=== PATIENT | male | born 1955 | race Caucasian/White ===

== ENCOUNTER 2020-08-07 06:24 | Inpatient (IN) | payer MEDICARE, OTHER ==
[~2020-08-07] VITALS: Ht 180.3 cm; Wt 113.3 kg
--- NOTE | 2020-08-07 06:44 | NUR ---
patient resting in bed with SOB after coughing. SOB with conversation. full sentences. A&Ox4. safety maintained. will continue to monitor.
[2020-08-07] MEDS ORDERED: SPIR25TA5 PO (06:55)
[2020-08-07] MEDS ORDERED: METO-282 PO (06:55)
[2020-08-07] MEDS ORDERED: AMLO-211 PO (06:55)
--- NOTE | 2020-08-07 06:58 | NUR ---
report given to dave CAM
[2020-08-07 07:44] LABS: BASOPHILS % (AUTO) 0 % (0-1); EOSINOPHILS % (AUTO) 0 % (1-7); LYMPHOCYTES % (AUTO) 9 % (22-44); MEAN CORPUSCULAR HEMOGLOBIN 28.5 pg (27.5-34.5); MEAN CORPUSCULAR HGB CONC 33.9 g/dL (33.2-36.2); MEAN PLATELET VOLUME 8.5 fL (7.4-10.4); MONOCYTES % (AUTO) 8 % (2-9); NEUTROPHILS % (AUTO) 83 % (42-75); PLATELET COUNT 152 x10^3/uL (130-400); RED BLOOD COUNT 6.28 x10^6/uL (4.38-5.82); RED CELL DISTRIBUTION WIDTH 13.6 % (9.4-14.8)
[2020-08-07 07:54] LABS: ALANINE AMINOTRANSFERASE 50 U/L (12-78); ALBUMIN 2.9 g/dL (3.4-5.0); ANION GAP 8 mmol/L (5-15); CALCIUM 8.9 mg/dL (8.5-10.1); CHLORIDE 105 mmol/L (98-107); CREATININE 1.12 mg/dL (0.7-1.3)
[2020-08-07 07:59] LABS: MD NO
[2020-08-07 08:01] LABS: ALKALINE PHOSPHATASE 25 U/L (45-117); BILIRUBIN,TOTAL 0.6 mg/dL (0.2-1.0); TOTAL PROTEIN 6.8 g/dL (6.4-8.2)
--- NOTE | 2020-08-07 08:11 | NUR ---
PT AWAITING TEST RESULTS. PROVIDED DRINKS, BLANKET AND PILLOW
[2020-08-07 08:26] LABS: D-DIMER (DIC) 0.27 ug/mlFEU (0.00-0.52); PROTIME 10.9 Seconds (9.6-11.5)
--- NOTE | 2020-08-07 09:05 | NUR ---
CONTINUES TO AWAIT RE-EVAL. RESTING WITH EYES CLOSED
[2020-08-07] MEDS ORDERED: CEFTRIAXONE PMX 1GM/50ML 50 ML IV ONE ×2 (09:30→12:00)
[2020-08-07] MEDS ORDERED: AZITHROMYCIN 500 MG in SODIUM CHLORIDE 0.9% 250 ML IV ONE (09:30)
[2020-08-07] MEDS ORDERED: CEFTRIAXONE PMX 1GM/50ML 50 ML ONE ×2 (09:47→11:46)
--- NOTE | 2020-08-07 10:13 | NUR ---
aware of intention to admit. iv established and antibiotics infusing
[2020-08-07] MEDS ORDERED: POLYETHYLENE GLYCOL 17 GM PACKET PO PRN (11:30)
[2020-08-07] MEDS ORDERED: hydrALAzine 20 MG/ML, 1ML IVPush PRN (11:30)
[2020-08-07] MEDS ORDERED: MELATONIN 5 MG TABLET PO PRN (11:30)
[2020-08-07] MEDS ORDERED: DOCUSATE 100 MG CAPSULE PO PRN (11:30)
[2020-08-07] MEDS ORDERED: ONDANSETRON 2MG/ML, 2ML IVPush PRN (11:30)
[2020-08-07] MEDS ORDERED: DEXAMETHASONE 4 MG/ML, 1ML ONE (11:44)
[2020-08-07] MEDS ORDERED: DEXAMETHASONE 4 MG/ML, 1ML IVPush ONE (12:00)
[2020-08-07 12:25] LABS: INTERNATIONAL NORMALIZED RATIO 1.03 (0.93-1.1); PROTHROMBIN TIME 10.9 Seconds (9.6-11.5)
[2020-08-07] MEDS ORDERED: ENOXAPARIN 40 MG/0.4 ML ONE (13:26)
[2020-08-07] MEDS: ENOXAPARIN 40 MG/0.4 ML SQ SCH (13:36)
--- NOTE | 2020-08-07 13:58 | NUR ---
BREAK RN: PT UPRIGHT ON GURNEY AWAKE & COMFORTABLE, RESPONDS APPROP TO STAFF, NAD, NO NEEDS AT THIS TIME, CALL LIGHT WITHIN REACH.
--- NOTE | 2020-08-07 15:27 | NUR ---
ONTO HOSPITAL BED. CONTINUES TO AWAIT ROOM ASSIGNMENT. NO SOB NOTED, OCCASIONAL COUGH.
[2020-08-07] MEDS ORDERED: GUAIFENESIN/DM 200-20MG, 10ML UDC ONE (16:56)
[2020-08-07] MEDS: GUAIFENESIN/DM 200-20MG, 10ML UDC PO PRN (17:01)
[2020-08-07] MEDS: AMLODIPINE 10 MG TAB PO SCH (17:33)
[2020-08-07] MEDS ORDERED: ASCORBIC ACID 500 MG TABLET ONE (17:38)
[2020-08-07] MEDS: ASCORBIC ACID 500 MG TABLET PO SCH (17:45)
[2020-08-07 17:59] LABS: MICROSCOPIC NOT IND
--- NOTE | 2020-08-07 19:04 | NUR ---
Report received from DORINA Duran. This RN to assume care. Patient resting in hospital bed. Slight SHARP at this time. Will provide drinks and assess mar for PRN pain meds.
[2020-08-07] MEDS ORDERED: ACETAMINOPHEN 325 MG TABLET ONE (19:43)
[2020-08-07] MEDS: ACETAMINOPHEN 325 MG TABLET PO PRN (20:00)
[2020-08-07] MEDS: SODIUM CHLORIDE FLUSH 10ML SYR IVF SCH (21:00)
[2020-08-07] MEDS ORDERED: METOPROLOL TARTRATE 25 MG TAB ONE (21:39)
[2020-08-07] MEDS ORDERED: ATORVASTATIN 40 MG TABLET ONE (21:40)
[2020-08-07] MEDS: METHIMAZOLE 5 MG TAB PO SCH (22:00)
[2020-08-07] MEDS: METOPROLOL SUCCINATE 25 MG TAB.ER.24H PO SCH (22:00)
[2020-08-07] MEDS: ATORVASTATIN 40 MG TABLET PO SCH (22:00)
--- NOTE | 2020-08-07 22:00 | NUR ---
Medicated patient per mar. Patient has no complaints/needs at this time.
--- NOTE | 2020-08-07 23:55 | NUR ---
Patient sleeping in hospital bed. Respirations even and unlabored. No complaints needs at this time.
--- NOTE | 2020-08-08 00:46 | NUR ---
TASK RN: PT RESTING ON HOSPITAL BED NADN, RESP EVEN AND UNLABORED.
--- NOTE | 2020-08-08 01:50 | NUR ---
Patient sleeping in hospital bed. Respirations even and unlabored.
[2020-08-08] MEDS ORDERED: ACETAMINOPHEN 325 MG TABLET ONE (03:35)
--- NOTE | 2020-08-08 04:00 | NUR ---
Patient sitting in hospital bed, awake and on phone. Respirations even and unlabored. Patient has a slight SHARP again. Tylenol provided per sep. Drinks provided. Urinal emptied. No other needs at this time.
[2020-08-08 05:52] LABS: BASOPHILS % (AUTO) 0 % (0-1); EOSINOPHILS % (AUTO) 0 % (1-7); LYMPHOCYTES % (AUTO) 11 % (22-44); MEAN CORPUSCULAR HEMOGLOBIN 28.4 pg (27.5-34.5); MEAN CORPUSCULAR HGB CONC 33.7 g/dL (33.2-36.2); MEAN PLATELET VOLUME 8.9 fL (7.4-10.4); MONOCYTES % (AUTO) 7 % (2-9); NEUTROPHILS % (AUTO) 82 % (42-75); PLATELET COUNT 166 x10^3/uL (130-400); RED BLOOD COUNT 5.94 x10^6/uL (4.38-5.82); RED CELL DISTRIBUTION WIDTH 13.6 % (9.4-14.8)
[2020-08-08 06:00] LABS: ALANINE AMINOTRANSFERASE 64 U/L (12-78); ALBUMIN 2.7 g/dL (3.4-5.0); ANION GAP 7 mmol/L (5-15); CALCIUM 8.9 mg/dL (8.5-10.1); CHLORIDE 108 mmol/L (98-107); CREATININE 0.97 mg/dL (0.7-1.3)
--- NOTE | 2020-08-08 06:00 | NUR ---
Patient resting in hospital bed, awake. Respirations even and unlabored.
[2020-08-08 06:02] LABS: ALKALINE PHOSPHATASE 22 U/L (45-117); BILIRUBIN,TOTAL 0.5 mg/dL (0.2-1.0); TOTAL PROTEIN 6.3 g/dL (6.4-8.2)
[2020-08-08 06:10] LABS: MD NO
--- NOTE | 2020-08-08 06:46 | NUR ---
Meal tray ordered.
--- NOTE | 2020-08-08 08:40 | NUR ---
pt has been up to bedside commode for BM. pt reports feeling very fatigued after getting up meal tray has been delivered
--- NOTE | 2020-08-08 09:16 | NUR ---
pt has consumed 100% of meal ECHO at bedside
--- NOTE | 2020-08-08 10:19 | NUR ---
hospitalist at bedside for eval
--- NOTE | 2020-08-08 10:39 | NUR ---
bed assignment has been received. attempting to call report
--- NOTE | 2020-08-08 10:44 | NUR ---
report called to Janiya CAM
[2020-08-08] MEDS ORDERED: PANTOPRAZOLE 40MG TABLET ONE (10:46)
[2020-08-08] MEDS ORDERED: ASCORBIC ACID 500 MG TABLET ONE (10:46)
[2020-08-08] MEDS ORDERED: AMLODIPINE 5 MG TABLET ONE (10:47)
[2020-08-08] MEDS ORDERED: LISINOPRIL 5 MG TABLET ONE (10:48)
[2020-08-08] MEDS ORDERED: CHOLECALCIFEROL 5,000u TAB ONE (10:49)
[2020-08-08] MEDS ORDERED: ZINC SULFATE 220 MG CAPSULE ONE (10:49)
[2020-08-08] MEDS: ZINC SULFATE 220 MG CAPSULE PO SCH ×2 (10:55→12:27)
[2020-08-08] MEDS: AMLODIPINE 10 MG TAB PO SCH ×2 (10:55→12:27)
[2020-08-08] MEDS: ASCORBIC ACID 500 MG TABLET PO SCH ×2 (10:56→17:23)
[2020-08-08] MEDS: CHOLECALCIFEROL 5,000u TAB PO SCH ×2 (10:57→12:27)
[2020-08-08] MEDS: LISINOPRIL 5 MG TABLET PO SCH ×2 (10:57→12:29)
[2020-08-08] MEDS: PANTOPRAZOLE 40MG TABLET PO SCH (10:57)
[2020-08-08 11:22] VITALS: BP 143/83
[2020-08-08] MEDS: AZITHROMYCIN 500 MG in SODIUM CHLORIDE 0.9% 250 ML IV SCH (12:26)
[2020-08-08] MEDS: METHIMAZOLE 5 MG TAB PO SCH (12:26)
[2020-08-08] MEDS: FOLIC ACID 1 MG TABLET PO SCH (12:27)
[2020-08-08] MEDS: THIAMINE 100MG TABLET PO SCH (12:27)
[2020-08-08] MEDS: METOPROLOL SUCCINATE 25 MG TAB.ER.24H PO SCH ×2 (12:29→21:06)
[2020-08-08] MEDS: ENOXAPARIN 40 MG/0.4 ML SQ SCH (12:29)
[2020-08-08] MEDS: SODIUM CHLORIDE FLUSH 10ML SYR IVF SCH ×2 (12:30→21:08)
[2020-08-08] MEDS: GUAIFENESIN/DM 200-20MG, 10ML UDC PO PRN ×2 (12:52→21:06)
[2020-08-08] MEDS: CEFTRIAXONE PMX 2GM/50ML 50 ML IVPB SCH (14:38)
[2020-08-08] MEDS: DEXAMETHASONE 4 MG/ML, 1ML IVPush SCH (14:38)
[2020-08-08 20:00] VITALS: BP 125/73
[2020-08-08 20:03] VITALS: BP 125/73
[2020-08-08] MEDS ORDERED: METHIMAZOLE 5 MG TAB PO SCH (21:00)
[2020-08-08] MEDS: ACETAMINOPHEN 325 MG TABLET PO PRN (21:06)
[2020-08-08] MEDS: ATORVASTATIN 40 MG TABLET PO SCH (21:06)
[2020-08-09 00:31] VITALS: BP 121/76
[2020-08-09 06:14] VITALS: BP 136/88
[2020-08-09] MEDS: METOPROLOL SUCCINATE 25 MG TAB.ER.24H PO SCH ×2 (08:39→19:56)
[2020-08-09] MEDS: METHIMAZOLE 5 MG TAB PO SCH (08:39)
[2020-08-09] MEDS: FOLIC ACID 1 MG TABLET PO SCH (08:39)
[2020-08-09] MEDS: LISINOPRIL 5 MG TABLET PO SCH (08:39)
[2020-08-09] MEDS: CHOLECALCIFEROL 5,000u TAB PO SCH (08:39)
[2020-08-09] MEDS: AMLODIPINE 10 MG TAB PO SCH (08:39)
[2020-08-09] MEDS: THIAMINE 100MG TABLET PO SCH (08:39)
[2020-08-09] MEDS: PANTOPRAZOLE 40MG TABLET PO SCH (08:40)
[2020-08-09] MEDS: ASCORBIC ACID 500 MG TABLET PO SCH ×2 (08:40→17:16)
[2020-08-09] MEDS: ZINC SULFATE 220 MG CAPSULE PO SCH (08:40)
[2020-08-09] MEDS: GUAIFENESIN/DM 200-20MG, 10ML UDC PO PRN ×2 (08:40→17:22)
[2020-08-09] MEDS: SODIUM CHLORIDE FLUSH 10ML SYR IVF SCH ×2 (08:40→19:55)
[2020-08-09] MEDS: ACETAMINOPHEN 325 MG TABLET PO PRN ×2 (08:57→17:22)
[2020-08-09 11:30] VITALS: BP 126/74
[2020-08-09] MEDS: ENOXAPARIN 40 MG/0.4 ML SQ SCH (11:41)
[2020-08-09] MEDS: AZITHROMYCIN 500 MG in SODIUM CHLORIDE 0.9% 250 ML IV SCH (11:41)
[2020-08-09] MEDS: CEFTRIAXONE PMX 2GM/50ML 50 ML IVPB SCH (14:56)
[2020-08-09] MEDS: DEXAMETHASONE 4 MG/ML, 1ML IVPush SCH (14:56)
[2020-08-09 19:52] VITALS: BP 126/82
[2020-08-09] MEDS: ATORVASTATIN 40 MG TABLET PO SCH (19:55)
[2020-08-10 01:08] VITALS: BP 130/81
[2020-08-10 06:17] VITALS: BP 144/91
[2020-08-10] MEDS: ASCORBIC ACID 500 MG TABLET PO SCH (08:19)
[2020-08-10] MEDS: LISINOPRIL 5 MG TABLET PO SCH (08:19)
[2020-08-10] MEDS: PANTOPRAZOLE 40MG TABLET PO SCH (08:20)
[2020-08-10] MEDS: CHOLECALCIFEROL 5,000u TAB PO SCH (08:20)
[2020-08-10] MEDS: METOPROLOL SUCCINATE 25 MG TAB.ER.24H PO SCH (08:20)
[2020-08-10] MEDS: ZINC SULFATE 220 MG CAPSULE PO SCH (08:20)
[2020-08-10] MEDS: THIAMINE 100MG TABLET PO SCH (08:20)
[2020-08-10] MEDS: AMLODIPINE 10 MG TAB PO SCH (08:21)
[2020-08-10] MEDS: FOLIC ACID 1 MG TABLET PO SCH (08:21)
[2020-08-10] MEDS: GUAIFENESIN/DM 200-20MG, 10ML UDC PO PRN (08:34)
[2020-08-10] MEDS: ACETAMINOPHEN 325 MG TABLET PO PRN (08:34)
[2020-08-10] MEDS: METHIMAZOLE 5 MG TAB PO SCH (08:34)
[2020-08-10] MEDS: SODIUM CHLORIDE FLUSH 10ML SYR IVF SCH (08:36)
[2020-08-10 11:26] VITALS: BP 129/78
[2020-08-10] MEDS: ENOXAPARIN 40 MG/0.4 ML SQ SCH (11:30)
[2020-08-10] MEDS ORDERED: CEFTRIAXONE PMX 2GM/50ML 50 ML IVPB SCH (11:30)
[2020-08-10] MEDS ORDERED: AZITHROMYCIN 500 MG in SODIUM CHLORIDE 0.9% 250 ML IV SCH (11:30)
[2020-08-10] MEDS ORDERED: ZINC220C7 PO (11:38)
[2020-08-10] MEDS ORDERED: METH5TAB6 PO (11:38)
[2020-08-10] MEDS ORDERED: ASCO1500 PO (11:38)
[2020-08-10] MEDS ORDERED: METH4TAB2 PO (11:38)
[2020-08-10] MEDS ORDERED: AZIT500T10 PO (11:38)
[2020-08-10] MEDS ORDERED: CHOL500045 PO (11:38)
[2020-08-10] MEDS ORDERED: CEFD300C37 PO (11:38)
== END 2020-08-10 15:00 | disposition home or self-care (01) | DRG 177 ==
LOC: ED 08:15 → EDIP 09:07 → 4WST 08-08 11:13
PROVIDERS: ADMIT Hospitalist; ATTEND Hospitalist
DX: U07.1 COVID-19 (principal); J12.82 Pneumonia due to coronavirus disease 2019; E43 Unspecified severe protein-calorie malnutrition; E87.1 Hypo-osmolality and hyponatremia; E87.2 Acidosis; Z20.822 Contact with and (suspected) exposure to COVID-19; Z66 Do not resuscitate; E03.9 Hypothyroidism, unspecified; E78.5 Hyperlipidemia, unspecified; I10 Essential (primary) hypertension; I34.0 Nonrheumatic mitral (valve) insufficiency; R74.01 Elevation of levels of liver transaminase levels; R74.02 Elevation of levels of lactic acid dehydrogenase [LDH]; R79.82 Elevated C-reactive protein (CRP); I71.2 Thoracic aortic aneurysm, without rupture; K21.9 Gastro-esophageal reflux disease without esophagitis; Z95.0 Presence of cardiac pacemaker; Z95.3 Presence of xenogenic heart valve; Z79.899 Other long term (current) drug therapy; Z79.891 Long term (current) use of opiate analgesic; Z79.01 Long term (current) use of anticoagulants; Z95.4 Presence of other heart-valve replacement; Z68.34 Body mass index [BMI] 34.0-34.9, adult
CPT/HCPCS: 36415; 71045; 80053; 81003; 82728; 83036; 83605; 83615; 83735; 84100; 84145; 84443; 85025; 85049; 85379; 85384; 85610; 85651; 85730; 86140; 87040; 93005; 93306; 96374; 96375; 99285; G0378; J0456; J0696; J1100; J1650; J7050; U0003